=== PATIENT | female | born 1970 ===

== ENCOUNTER → 2022-08-18 08:26 | Outpatient (BNVA) | payer OTHER, SELFPAY | PROVIDERS: PCP Family Medicine; Visit Provider Physician Assistant Surgical | DX: Z13.89 Encounter for screening for other disorder (principal) ==

== ENCOUNTER → 2022-09-02 13:44 | Outpatient (BNVA) | payer OTHER, SELFPAY | PROVIDERS: PCP Family Medicine; Visit Provider Physician Assistant Surgical | DX: Z13.89 Encounter for screening for other disorder (principal) ==

== ENCOUNTER 2022-11-14 14:16 | Outpatient (AMB) | payer OTHER, SELFPAY ==
--- NOTE | 2022-11-14 14:18 | MHC.OFFVISWM ---
Intake VS Expanded 11/14/22 14:19 Height 5 ft 4 in Weight 277 lb BMI 47.5 BP 138/63 Blood Pressure Location Rt brachial Blood Pressure Position Sitting Pulse 84 Pulse Source Pulse Oximeter Temp 97.5 F Temperature Source Temporal Artery Scan Pulse Oximetry 95 Oxygen Delivery Method Room Air Body Fat 134.4 Body Fat Percentage 48.6 Free Fat Mass 142.4 Muscle Mass 135.2 Visceral Mass 17.0 Water Mass 101.6 BMR 2,031 Intake Visit Reasons: MWL follow up Allergies warfarin Allergy (Mild, Verified 11/14/22 14:20) Hives HPI HPI Comments History of Present Illness Details 52 yo female returns for f/u for MWL program Missed appt with RD 11/03/22 Initial weight 09/02/22 was 291.2 pounds, has not communicated weekly Weight today 277 pounds with a BMI of 47.5 Weight loss 14.2 pounds, 4.8 % TBWL She feels as though she is needing less Meloxicam for back pain. She feels as though things are going well. Less SOB and increased ability to go up/down stairs. She is averaging 5 days per week that she is able to follow the plans exactly. Not doing the bar and sometimes not doing mid morning shake due to work. Not counting forks. Not doing last shake at night. Meal plan: 3 Pure Protein shakes ([employer], [employer], [facility]) First shake (1 scoop in 8 oz low fat unsweetened almond milk) at 6am-8am Second shake (1/2 scoop in 8 oz unsweetened almond milk) at 10am-12pm 1 protein bar ([employer] Perfect bars at [employer], [facility], or [employer]) at 2pm-4pm. Dinner at 6pm (10 forks of protein and 10 forks of salad/vegetables). Another shake with 1/2 scoop in 8 oz unsweetened almond milk at 7pm-9pm. Drinking 96 oz water Exercise plan: walking at work, not tracking calories, no other exercises. PFSH Surgical History History of surgery of uterus Hx of appendectomy Hx of cholecystectomy Hx of colonoscopy Hx of endoscopy Hx of tonsillectomy Hx of tubal ligation Family History Mother Diabetes Hypertension High cholesterol Arthritis Father Arthritis Sister No problems noted. Sister No problems noted. Brother Diabetes Hypertension Sister No problems noted. Sister Arthritis Diabetes Hypertension Sister Hypertension Diabetes Thyroid disease Son Vasculitis Daughter No problems noted. Social History Alcohol intake: current Alcohol intake frequency: holidays/special occasions only Patient Tobacco Use Status: Never used Tobacco Physical Exam Const General: healthy appearing and no acute distress Resp Effort & Inspection: normal respiratory effort Auscultation: clear to auscultation bilaterally Cardio Rate: regular rate Rhythm: regular rhythm GI Auscultation: normal bowel sounds Extrem General: Yes normal to inspection Assessment & Plan Assessment & Plan (1) Morbid obesity: Code(s): E66.01 - Morbid (severe) obesity due to excess calories Plan: Encouraged to follow plan and to communicate if she is having any problems. Has not text since first appt Change meal plan to shake, bar (alternates given) or yogurt w berries, meal and another shake. 1 scoop pure protein per shake Encouraged to measure food Encouraged to start exercising despite active at work. Reminded of goals of exercise RTC 1 month Coding Level of Care Code Est Pt Level 3 (95470) Diagnoses Morbid obesity E66.01
[2022-11-14 14:19] VITALS: BP 138/63; PULSE 84; TEMP 36.4; O2SAT 95; BMI 47.5
== END 2022-11-14 14:43 | disposition home or self-care (01) ==
PROVIDERS: PCP Family Medicine; Visit Provider Physician Assistant Surgical
DX: E66.01 Morbid (severe) obesity due to excess calories (principal); Z68.42 Body mass index [BMI] 45.0-49.9, adult
CPT/HCPCS: 99213

== ENCOUNTER → 2022-11-14 14:16 | Outpatient (BNVA) | payer OTHER, SELFPAY | PROVIDERS: PCP Family Medicine; Visit Provider Physician Assistant Surgical ==

== ENCOUNTER 2025-03-20 09:38 | Outpatient (AMB) | payer OTHER, SELFPAY ==
[2025-03-20 09:44] VITALS: BMI 54.1
--- NOTE | 2025-03-20 09:44 | A.PHYSOV_ITS ---
Vital Signs 03/20/25 09:44 Height 5 ft 4 in Weight 315 lb BMI 54.1 Intake Visit Reasons: NPV SELF REF-BACK + HIP PAIN Intake Note: Patient is a 55 year old female in the office today as a new patient for low back and hip pain Allergies warfarin Allergy (Mild, Verified 03/20/25 09:46) Hives HPI Comments Details: History of Present Illness The patient is a 55-year-old female presenting with chronic low back pain radiating to the right hip. The pain has been persistent for several years without any specific inciting injury. She has previously received various injections and nerve ablation, which provided minimal relief, particularly on the left side. The pain is exacerbated by standing and walking, and she experiences significant discomfort upon rising from a seated position. Activities such as grocery shopping require her to use an electric cart or lean on a shopping cart for support. The patient has a history of fibromyalgia, for which she is currently taking pregabalin 200 mg three times daily, which has been effective in managing her nerve pain. She also has diabetes mellitus and arthritis, which are part of her medical history. She received care from [facility] and received multiple injections none of them was significantly helpful. She had radiofrequency neurotomy I believe for her lumbar facet joints, unfortunately procedure provided no benefit for pain on her right side, but did help with the pain on the left side. She ambulates with a single-point cane. She is not currently working. She denies any change in bowel bladder habits. She denies any fever or chills. Other than injections for management of extensive physical therapy. She should not be taking anti-inflammatory medications basis secondary diabetes. I reviewed her primary care notes, diagnostic imaging and records from physicians. Pain Description - Onset: Pain has been present for several years. - Quality: Described as radiating from the lower back to the right hip. - Location: Primarily in the lower back and right hip. - Exacerbating factors: Standing, walking, and rising from a seated position. - Relieving factors: Use of electric carts during shopping. - Interference: Pain interferes with daily activities such as grocery shopping and requires support for walking. Results - Imaging: Right hip x-rays were normal (June 12, 2023). - Imaging: Thoracic spine MRI showed mild degenerative changes (June 09, 2023). - Imaging: Lumbosacral spine MRI showed shallow disc protrusion at L5-S1 with contact to bilateral S1 nerve roots without displacement, and disc bulge at L4- L5 causing mild spinal canal narrowing (June 22, 2022). [facility] Surgical History Hx of tonsillectomy Hx of colonoscopy Hx of endoscopy Hx of cholecystectomy History of surgery of uterus Hx of appendectomy Hx of tubal ligation Family History Mother Diabetes Hypertension High cholesterol Arthritis Father Arthritis Sister No problems noted. Sister No problems noted. Brother Diabetes Hypertension Sister No problems noted. Sister Arthritis Diabetes Hypertension Sister Hypertension Diabetes Thyroid disease Son Vasculitis Daughter No problems noted. Social History Alcohol intake: current Alcohol intake frequency: holidays/special occasions only Patient Tobacco Use Status: Never used Tobacco Review of Systems Narrative Review of Systems - Musculoskeletal: Reports chronic low back pain radiating to the right hip. - Neurological: Denies any new neurological deficits. Physical Exam Exam Exam: Physical Exam - Musculoskeletal: Pain elicited in the back and hip upon palpation. Pain with internal rotation of the right hip. Severe tenderness with palpation over right SI sulcus. Positive right SI provocative maneuvers. Gait was antalgic on the right side. Neurological examination of lower extremities was nonfocal. Lumbar extension and side bending was restricted. Dural tension signs were negative. Patient is morbidly obese. Heel walk and toe walk were not tested. Vital Signs: BMI result Body Mass Index 54.1 Assessment & Plan Assessment & Plan (1) Morbid obesity: Code(s): E66.01 - Morbid (severe) obesity due to excess calories Category: Medical (2) Fibromyalgia: Code(s): M79.7 - Fibromyalgia Category: Medical (3) Hip pain, chronic: Code(s): M25.559 - Pain in unspecified hip; G89.29 - Other chronic pain Category: Medical Qualifiers: Laterality: right Qualified Code(s): M25.551 - Pain in right hip; G89.29 - Other chronic pain (4) Sacroiliac inflammation: Code(s): M46.1 - Sacroiliitis, not elsewhere classified Category: Medical (5) Sacroiliac dysfunction: Code(s): M53.3 - Sacrococcygeal disorders, not elsewhere classified Category: Medical Plan Pain Management - Affect: Pain impacts daily activities and requires adaptation such as using electric carts for shopping. - Analgesia: Currently taking pregabalin 200 mg three times daily, which helps manage fibromyalgia-related nerve pain. - Adverse Effects: No adverse effects from pregabalin reported. - Activities of Daily Living: Pain limits ability to stand and walk for extended periods. - Aberrant Drug Related Behaviors: No aberrant behaviors reported. Plan Patient was informed and verbally consented to the use of an ambient scribe for clinic note documentation during this visit. 1. Low Back Pain An MRI of the right hip is planned to further evaluate the pain source, with a referral to a specialist for advanced procedures if necessary. A follow-up is scheduled in one month to discuss the MRI findings and adjust the treatment plan. 2. Fibromyalgia The patient continues on pregabalin 200 mg three times daily, which effectively manages her fibromyalgia symptoms. 3. Diabetes Mellitus Diabetes management remains unchanged, with the patient advised to maintain her current regimen. 4. Arthritis Turmeric supplementation is recommended for arthritis inflammation, with a dosage of two capsules twice daily. Discussion Notes I discussed with the patient the plan to obtain an MRI of the right hip to better understand the source of her pain, as previous x-rays were normal. We also talked about the possibility of referring her to a specialist in [place] for advanced pain management procedures if the MRI does not provide sufficient information. I explained the potential benefits of these procedures, including a lateral stimulator, which could offer long-term pain relief. We agreed on a follow-up appointment in one month to review the MRI results and discuss further management options. Additionally, I recommended turmeric supplements for arthritis-related inflammation, considering her diabetes, and provided instructions on the dosage. Patient Instructions - Schedule and complete an MRI of the right hip as soon as possible. - Follow up in one month to discuss MRI results and adjust treatment plan. - Consider turmeric supplements for arthritis, taking two capsules twice daily. - Continue current diabetes management plan. Orders: Orders MR hip RT wo con Today G89.29 - Other chronic pain, M25.551 - Pain in right hip Coding Level of Care Code New Pt Level 4 (45000) Complex EM visit Add On G2211 Diagnoses Morbid obesity E66.01 Fibromyalgia M79.7 Chronic pain of right hip M25.551; G89.29 Laterality: right Sacroiliac inflammation M46.1 Sacroiliac dysfunction M53.3
--- OUTSIDE RECORDS SUMMARY | 2025-03-20 11:11 | XMS_ITS | Clinical Summary ---
Author Organization Formerly [facility] Address [address] [place] [id number] Phone Care Team Providers Care Supervisor [employer] Name Role Phone MarlinTejselvin Trammell DO Primary Care Provider Allergies Active Allergy Reactions Criticality Noted Date Comments Warfarin Hives 01/25/2023 Medications DULoxetine (CYMBALTA) 30 MG capsule Take 60 mg by mouth daily. 01/23/2023 Active gabapentin (NEURONTIN) 300 MG capsule Take 300 mg by mouth 2 (two) times a day. 01/10/2023 Active ferrous sulfate (IRON ORAL) Take 45 mg by mouth daily. Active ascorbic acid (VITAMIN C ORAL) Take by mouth. Active acetaminophen (TYLENOL) 650 MG CR tablet Take 2 tablets by mouth every 8 (eight) hours as needed. Active amitriptyline (ELAVIL) 25 MG tabletIndicatio ns:Fibromyalgia Take 1 tablet (25 mg total) by mouth nightly at bedtime. 30 tablet 02/21/2023 Active diclofenac sodium (VOLTAREN) 50 MG EC tabletIndicatio ns:Chronic bilateral low back pain without sciatica Take 1 tablet (50 mg total) by mouth 2 (two) times a day with meals. 60 tablet 02/21/2023 Active Active Problems Problem Noted Date Diagnosed Date Generalized pain 02/21/2023 Assessment & Plan (02/21/2023 10:06 AM EDT): Clinical picture c/w fibromyalgia as above; baseline PTH with routine labs today Elevated sed rate 02/21/2023 Overview (02/21/2023): 36 (08/2022), no baseline Assessment & Plan (02/21/2023 10:06 AM EDT): Repeat for trend today Chronic bilateral low back pain without sciatica 02/21/2023 Overview (02/21/2023): Following with PVSS, LESI not effective and radiofrequency ablation reportedly planned Assessment & Plan (02/21/2023 10:10 AM EDT): Trial diclofenac to replace meloxicam given lack of efficacy. D/w patient that if gabapentin has not been effective (dose limited by daytime grogginess), she should discuss taper with rx'ing MD, javon if she ultimately has significant improvement from the radiofrequency ablation. Fibromyalgia 02/21/2023 Assessment & Plan (02/21/2023 10:11 AM EDT): Agree with fibromyalgia dx given diffuse chronic pain and hyperalgesia of multiple joints on exam today. Written information fibromyalgia provided for patient review and three pillars of fibromyalgia mgmt discussed briefly. Trial add amitriptyline 25 mg nightly for sleep; can be increased to 50 mg nightly if 25 mg dose is inadequate. Defer to PCP re: continued encouragement of establishing low-impact aerobic exercise routine, ideally water-based, and referral to counselor for focus on chronic pain mgmt. Could additionally trial pregabalin to replace current gabapentin; deferred to PCP given clinical course / response to ongoing tx of LBP. There is no current indication for ongoing rheum-specific w/u or mgmt in absence of underlying or co-morbid inflammatory arthritis. DDx includes small fiber neuropathy, though clinically less likely; she may ultimately benefit from referral to [facility] or other major medical center to definitively rule this out. Social History Tobacco Use Types Packs/Day Years Used Date Smoking Tobacco: Former Cigarettes Q uit: 1996 Smokeless Tobacco: Never Alcohol Use Standard Drinks/Week Comments Not Currently 0 (1 standard drink = 0.6 oz pur e alcohol) rarely Education Answer Date Recorded Are you interested in more education? Not on shira e 10/12/2022 Are you concerned about learning? Not on file 10/12/2022 No 10/12/2022 No 10/12/2022 Digital Access Answer Date Recorded No 10/12/2022 No 10/12/2022 Reliable internet access at home? Not on file 10/12/2022 Device with a working camera? Not on file Comments Unknown Sex and Gender Information Value Date Recorded Sex Assigned at Not on file Legal Sex Female 7:42 PM EST Gender Identity Not on file Sexual Orientation Not on file Last Filed Vital Signs Vital Sign Reading Time Taken Comments Blood Pressure 136/78 02/21/2023 8:58 AM EDT Pulse 98 02/21/2023 8:58 AM EDT Temperature - - Respiratory Rate 16 02/21/2023 8:58 AM EDT Oxygen Saturation 96% 02/21/2023 8:5 8 AM EDT Inhaled Oxygen Concentration - - Weight 130.4 kg (287 lb 6.4 oz) 02/21/2023 8:58 AM EDT with shoes Height 162.6 cm (5' 4 ) 02/21/2023 8:58 AM EDT patient reported Body Mass Index 49.33 02/21/2023 8:58 AM EDT Plan of Treatment Health Maintenance Due Date Last Done Comments Adult Td,Tdap Booster 1972 LIPID PANEL 1972 DEPRESSION SCREENING 1984 SMOKING Hx and SMOKELESS TOB ACCO SCREENING 01/06/1985 HEPATITIS C SCREENING 01/06/1990 HIV ONE-TIME SCREENING (18-6 5 YEARS) 01/06/1990 PAP SMEAR 01/06/1993 SCREENING FOR DIABETES 01/06/2007 MAMMOGRAM 2012 COLOGUARD 01/06/2017 COLONOSCOPY 01/06/2017 COLORECTAL CANCER SCREENING 01/06/2017 FIT TEST 01/06/2017 FOBT 01/06/2017 SIGMOIDOSCOPY 01/06/2017 VIRTUAL COLONOSCOPY 01/06/2017 PNEUMOCOCCAL VACCINES (50+ y ears) (1 of 1 - PCV) 01/06/2022 RSV VACCINE (1 - Risk 50-74 years 1-dose series) 01/06/2022 ZOSTER VACCINES (1 of 2) 01/06/2022 INFLUENZA VACCINE (#1) 2024 02/09/2023 COVID-19 VACCINE (2024-2 6 season) 2025 HEPATITIS A VACCINES Aged Out No long er eligible based on patient's age to complete this topic HIB VACCINES Aged Out No longer eligi ble based on patient's age to complete this topic IPV VACCINES Aged Out No longer eligi ble based on patient's age to complete this topic MENINGOCOCCAL VACCINES (ACWY) Aged Out No longer eligible based on patient's age to complete this topic MENINGOCOCCAL VACCINES (B) Aged Out N o longer eligible based on patient's age to complete this topic Medical Devices Not on file Insurance S S S S S [facility] PPO [employer] Care Teams Supervisor [employer] Relationship Specialty Start Date End Date Stefan Isaac DO [address] [place] [address] PCP - General 11/05/13 Additional Source Comments The information contained in this document represents components of the legal health record. It is not the complete legal health record.[facility]
--- OUTSIDE RECORDS SUMMARY | 2025-03-20 11:11 | XMS_ITS | Clinical Summary ---
Author Organization [facility] Address [address] [place] [address] Phone Care Team Providers Care Hand Spray Operator Name Role Phone Stefan Isaac Primary Care Provider Allergies Active Allergy Reactions Criticality Noted Date Comments Warfarin 11/26/2020 Other Reaction(s): Hives/Urticaria Medications acetaminophen (TYLENOL 8 HOUR ORAL) Take 1,300 mg by mouth daily. Active ferrous sulfate 142 mg ER tablet Active metFORMIN XR (GLUCOPHAGE-XR) 500 mg 24 hr tablet Take 1 tablet (500 mg total) by mouth 1 (one) time each day. 5 Active Gabby 0.35 mg tablet Take 1 tablet (0.35 mg total) by mouth 1 (one) time each day. 5 Active pregabalin (LYRICA) 150 mg capsule Take 1 capsule (150 mg total) by mouth 2 (two) times a day. Active cetirizine (ZyrTEC) 10 mg tablet Take 1 tablet (10 mg total) by mouth 1 (one) time each day. 5 Active Vitamin 27 mg iron- 0.8 mg per tablet Take 1 tablet by mouth 1 (one) time each day. 5 Active Ventolin HFA 90 mcg/actuation inhaler Inhale 2 puffs by mouth every 4 (four) hours if needed for wheezing or shortness of breath. 5 Active fluticasone propionate (FLONASE) 50 mcg/actuation nasal spray Administer 1 spray into each nostril 1 (one) time each day. Active Active Problems Problem Noted Date Diagnosed Date Anemia 11/27/2024 Carpal tunnel syndrome 11/27/2024 Impingement syndrome of shoulder region 11/28/19 25 Iron deficiency anemia 11/27/2024 Neuropathy of leg 11/27/2024 Pain in the muscles 11/27/2024 Peripheral edema 11/27/2024 Pneumonia 11/27/2024 Prolonged QT interval 11/27/2024 Rotator cuff tear arthropathy of left shoulder 0 11/27/2024 Severe obesity (CMS/HCC V24, CMS/HCC V28) 2024 Tendonitis of upper biceps tendon of right shoul cristy 11/27/2024 Type 2 diabetes mellitus (CMS/HCC V24, CMS/HCC V 28) 11/27/2024 Urinary problem 11/27/2024 Back pain of lumbar region with sciatica 025 Fibromyalgia 02/21/2023 Elevated sed rate 02/21/2023 Overview (11/27/2024): 36 (08/2022), no baseline Generalized pain 02/21/2023 Tubular adenoma of colon 02/23/2021 Congenital cystic disease of liver 12/29/2020 Perineurial cyst 12/29/2020 Sleep apnea 12/29/2020 Chronic abdominal pain 08/28/2015 Abnormal weight loss 05/30/2014 Overview (11/27/2024): Abnormal Weight Loss Diagnosis unknown 05/30/2014 Overview (11/27/2024): Text: Nausea Chronic Right upper quadrant pain 05/30/2014 Overview (11/27/2024): Abdominal Pain In The Right Upper Belly (RUQ) Encounters Date Type Department Care Team Description 12/25/2024 Telephone Gastroenterology - [facility] [address] [place] [address] Evelyn Mcdermott NP from Last 3 Months Immunizations Immunization Administration Dates Next Due Influenza trivalent, with preservative (Fluzone; Afluria) 6mo and older 02/12/2024,02/08/2023,02/22/2021,2019,02/14/2017 Zoster recombinant (Shingrix ) 19yo and older 02/29/2024 Surgical History Surgery Date Site/Laterality Comments APPENDECTOMY PROCEDURE: HISTORICAL APPENDECTOMY KNEE SURGERY 05/08/2023 - 05/07/2024 Left CHOLECYSTECTOMY 05/08/2013 - 05/07/2014 POLYPECTOMY Uterine polypectomy x2 TUBAL LIGATION 05/08/1998 - 05/07/1999 COLONOSCOPY August 2024 Medical History Medical History Date Comments Congenital cystic disease of liver 12/29/2020 DX:Congenital cystic disease of liver History of deep vein thrombo sis (DVT) of lower extremity 12/29/2020 DX:History of deep vein thro mbosis (DVT) of lower extremity Perineurial cyst 12/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 DX:Perineurial cyst Sleep apnea 12/29/2020 DX:Sleep apnea Anemia Carpal tunnel syndrome Fibromyalgia Pneumonia Diabetes mellitus (CMS/HCC V 24, CMS/HCC V28) Tendonitis Arthritis Family History Medical History Relation Name Comments Colon polyps Brother Francis Miller Diabetes Brother Francis Miller Colon polyps Daughter Tammy Santos Diabetes Father's Brother 1 Ross Miller Hypertension Father's Brother 1 Ross Miller Diabetes Father's Brother 2 Merritt Miller Heart attack Father's Brother 2 Merritt Miller Hypertension Father's Brother 2 Merritt Miller Diabetes Father's Brother 3 Gumemzindo Miller Colon polyps Mother Shavon Mak Lazaro Diabetes Mother Shavon Mak Lazaro Hypertension Mother Shavon Mak Lazaro Irritable bowel syndrome Mother Shavon Mak Lazaro Deep vein thrombosis Mother's Brother Jose Mak Stomach cancer Mother's Brother Jose Mak Colon polyps Mother's Sister 1 Gladyz Mak Diabetes Mother's Sister 1 Gladyz Mak Hypertension Mother's Sister 1 Gladyz Mak Diabetes Mother's Sister 2 Katerina Mak Hypertension Mother's Sister 2 Katerina Mak Diabetes Mother's Sister 3 Kavitha Mak Lazaro Hypertension Mother's Sister 3 Kavitha Mak Lazaro Stroke Mother's Sister 3 Kavitha Mak Lazaro Cystic fibrosis Mother's Sister 4 Domitila Mak Liver disease Mother's Sister 4 Domitila Mak Liver cancer Mother's Sister 5 Isela Mak Liver disease Mother's Sister 5 Isela Mak Heart attack Paternal Grandfather Rossabi Bergergos Diabetes Paternal Grandmother Deana Rutledge Hypertension Paternal Grandmother Deana Rutledge Diabetes Sister 1 Dina Miller Colon polyps Sister 2 Irene Miller I Diabetes Sister 2 Irene Miller I Hypertension Sister 2 Irene Miller I Liver disease Sister 2 Irene Miller I Relation Name Status Comments Brother Francis Stevensmez Daughter Leischeryl Santos Father's Brother 1 Ross Miller Father's Brother 2 Merritt Miller Father's Brother 3 Gumemzindo Miller Maternal Grandfather COLON C A Mother Shavon Mak Lazaro Mother's Brother Jose Mak Mother's Sister 1 Gladywang Mak Mother's Sister 2 Katerina Mak Mother's Sister 3 Kavitha Mak Lazaro Mother's Sister 4 Domitila Mak Mother's Sister 5 Isela Mak Paternal Grandfather Rossabi Miller New Paternal Grandmother Deana Rutledge Sister 1 Dina Miller Sister 2 Irene Stevensmez I Social History Tobacco Use Types Packs/Day Years Used Date Smoking Tobacco: Former Cigarettes 3 25.3 0 01/06/1990 - 05/08/2015 Smokeless Tobacco: Never Alcohol Use Standard Drinks/Week Comments Not Currently 0 (1 standard drink = 0.6 oz pur e alcohol) social Interpersonal Safety Answer Date Record ed Physical Abuse Unrecognized value 08/19/2024 Verbal Abuse Unrecognized value 08/19/2024 Comments No Sex and Gender Information Value Date Recorded Sex Assigned at Female 07/29/2024 10:23 AM EDT Legal Sex Female 6:13 PM EST Gender Identity Female 07/29/2024 10:23 AM EDT Sexual Orientation Straight 07/29/2024 10 :23 AM EDT Obstetrics History Last Filed Vital Signs Vital Sign Reading Time Taken Comments Blood Pressure 132/76 11/28/2024 9:05 AM EDT Pulse 89 11/28/2024 9:05 AM EDT Temperature 36.6 C (97.8 F) 08/19/2024 8:25 AM EDT Respiratory Rate 14 08/19/2024 9:18 AM EDT Oxygen Saturation 97% 11/28/2024 9:05 AM EDT Inhaled Oxygen Concentration - - Weight 142 kg (313 lb 6.4 oz) 11/28/2024 9:05 AM EDT Height 162.6 cm (5' 4 ) 11/28/2024 9:05 AM EDT Body Mass Index 53.79 11/28/2024 9:05 AM EDT Plan of Treatment Health Maintenance Due Date Last Done Comments Breast Cancer Screening 1970 Diabetes: Annual GFR (Glomerular Filtration Rate) 1970 Diabetes: Annual Foot Exam 01/06/1982 Diabetes: Annual Retina Eye Exam 01/06/1982 DTaP,Tdap,and Td Vaccines (1 - Tdap) 01/06/1991 Hepatitis B Vaccines (1 of 3 - 19+ 3-dose series) 01/06/1991 Pneumococcal Vaccine: 50+ Years (1 of 2 - PCV) 01/06/1991 Cervical Cancer Screening: Pap Smear 01/06/1993 RSV Immunization Adult Patients (1 - Risk 50-74 years 1-dose series) 01/06/2022 Cholesterol Screening (Lipid Panel) 04/16/2022 HIV Screening 04/16/2022 Hepatitis C Screening 04/16/2022 Lung Cancer Screening (Low Dose CT) 04/16/2022 Social Influencers of Health Screening 04/16/2022 Depression Screening 05/08/2024 Diabetes: Annual Urine Albumin-Creatinine Ratio (uACR) 06/27/2024 Diabetes: Blood Sugar Control Test (HGBA1C) 06/27/2024 COVID-19 Vaccine ( season) 2025 02/12/2024, 02/08/2023, 03/04/2021, Additional history exists Colorectal Cancer Screening: Colonoscopy 08/19/2029 08/19/2024, 02/12/2021, 02/12/2021 Zoster Vaccines Completed 08/01/2024, 02/29/2024 Influenza Vaccine Completed 02/21/2025, , 02/08/2023, Additional history exists HIB Vaccines Aged Out No longer eligi ble based on patient's age to complete this topic HPV Vaccines Aged Out No longer eligi ble based on patient's age to complete this topic Hepatitis A Vaccines Aged Out No long er eligible based on patient's age to complete this topic IPV Vaccines Aged Out No longer eligi ble based on patient's age to complete this topic MMR Vaccines Aged Out No longer eligi ble based on patient's age to complete this topic Meningococcal ACWY Vaccine Aged Out N o longer eligible based on patient's age to complete this topic Meningococcal B Vaccine Aged Out No l onger eligible based on patient's age to complete this topic RSV Immunization Patients Under 20 months Aged Out No longer eligible based on patient's age to complete this topic Varicella Vaccines Aged Out No longer eligible based on patient's age to complete this topic Procedures Procedure Name Priority Date/Time Associated Diagnosis Comments COLONOSCOPY Routine 08/19/2024 8:57 AM EDT Chronic iron deficiency anemia from Last 3 Months or Most Recently Relevant to Health Maintenance Results * COLONOSCOPY Anesthesia - MAC; [facility] ENDOSCOPY (08/19/2024 8:57 AM EDT) Anatomical Region Laterality Modality Endoscopy 08/19/2024 7:36 AM EDT Impressions 08/19/2024 8:57 AM EDT - Hemorrhoids found on perianal exam. - One 6 mm polyp in the ascending colon, removed with a cold snare. Resected and retrieved. - Congested mucosa in the rectum. Biopsied. - The examination was otherwise normal on direct and retroflexion views. Recommendation: - - Discharge patient to home. - High fiber diet. - Continue present medications. - Await pathology results. - Repeat colonoscopy for surveillance based on pathology results. - Rectal congestion likely due to mild prolapse. Bx obtained. Narrative 08/19/2024 8:57 AM EDT [facility] GI Patient Name: Radha Miller Procedure Date: 08/19/2024 7:36 AM Date of : 1970 Age: 54 Gender: Female Note Status: Finalized Attending MD: Dominic Funk DO, [id number] Procedure Date No Time: 08/19/2024 Procedure: Colonoscopy Indications: Iron deficiency anemia Providers: Dominic Funk DO Referring MD: Stefan Isaac MD Medicines: Monitored Anesthesia Care Complications: No immediate complications. Estimated blood loss: None. Estimated Blood Loss: Estimated blood loss was minimal. Procedure: Pre-Anesthesia Assessment: - - Prior to the procedure, a History and Physical was performed, and patient medications and allergies were reviewed. The patient is competent. The risks and benefits of the procedure and the sedation options and risks were discussed with the patient. All questions were answered and informed consent was obtained. Patient identification and proposed procedure were verified by the physician, the nurse, the anesthesiologist, the women's apparel salesperson and the business office technician in the pre-procedure area in the endoscopy suite. Mental Status Examination: alert and oriented. Airway Examination: normal oropharyngeal airway and neck mobility. Respiratory Examination: clear to auscultation. CV Examination: normal. Prophylactic Antibiotics: The patient does not require prophylactic antibiotics. Prior Anticoagulants: The patient has taken no anticoagulant or antiplatelet agents. ASA Grade Assessment: II - A patient with severe systemic disease. After reviewing the risks and benefits, the patient was deemed in satisfactory condition to undergo the procedure. The anesthesia plan was to use monitored anesthesia care (MAC). Immediately prior to administration of medications, the patient was re-assessed for adequacy to receive sedatives. The heart rate, respiratory rate, oxygen saturations, blood pressure, adequacy of pulmonary ventilation, and response to care were monitored throughout the procedure. The physical status of the patient was re-assessed after the procedure. After I obtained informed consent, the scope was passed under direct vision. Throughout the procedure, the patient's blood pressure, pulse, and oxygen saturations were monitored continuously. The Colonoscope was introduced through the anus and advanced to the cecum, identified by appendiceal orifice and ileocecal valve. The colonoscopy was performed without difficulty. The patient tolerated the procedure well. The quality of the bowel preparation was good. Findings: Hemorrhoids were found on perianal exam. A 6 mm polyp was found in the ascending colon. The polyp was sessile. The polyp was removed with a cold snare. Resection and retrieval were complete. Verification of patient identification for the specimen was done. Estimated blood loss was minimal. An area of mildly congested mucosa was found in the rectum. This was biopsied with a cold forceps for histology. Verification of patient identification for the specimen was done. Estimated blood loss was minimal. The exam was otherwise without abnormality on direct and retroflexion views. Procedure Code(s): --- Professional --- 70596, Colonoscopy, flexible; with removal of tumor(s), polyp(s), or other lesion(s) by snare technique 62355, 59, Colonoscopy, flexible; with biopsy, single or multiple Diagnosis Code(s): --- Professional --- K64.9, Unspecified hemorrhoids D12.2, Benign neoplasm of ascending colon K62.89, Other specified diseases of anus and rectum D50.9, Iron deficiency anemia, unspecified CPT copyright 2020 [employer]. All rights reserved. The codes documented in this report are preliminary and upon certified medical records coder review may be revised to meet current compliance requirements. DOMINIC Funk DO 08/19/2024 8:57:40 AM This report has been signed electronically.Dominic Funk DO Number of Addenda: 0 Note Initiated On: 08/19/2024 7:36 AM Scope Withdrawal Time: 0 hours 6 minutes 54 seconds Scope In: 8:45:39 AM Scope Out: 8:54:46 AM Endoscopy Department at [facility] - [address] [place] [id number] Procedure Note Dominic Funk DO - 08/19/2024 [facility] GI Patient Name: Radha Miller Procedure Date: 08/19/2024 7:36 AM Date of : 1970 Age: 54 Gender: Female Note Status: Finalized Attending MD: Dominic Funk DO, [id number] Procedure Date No Time: 08/19/2024 Procedure: Colonoscopy Indications: Iron deficiency anemia Providers: Dominic Funk DO Referring MD: Stefan Isaac MD Medicines: Monitored Anesthesia Care Complications: No immediate complications. Estimated blood loss:None. Estimated Blood Loss: Estimated blood loss was minimal. Procedure: Pre-Anesthesia Assessment: - - Prior to the procedure, a History and Physicalwas performed, and patient medications and allergieswere reviewed. The patient is competent. The risks and benefits of the procedure and the sedation optionsand risks were discussed with the patient. Allquestions were answered and informed consent was obtained. Patient identification and proposed procedure were verified by the physician, the nurse, the anesthesiologist, the women's apparel salesperson and thetechnician in the pre-procedure area in the endoscopy suite. Mental Status Examination: alert and oriented.Airway Examination: normal oropharyngeal airway and neck mobility. Respiratory Examination: clear to auscultation. CV Examination: normal. Prophylactic Antibiotics: The patient does not requireprophylactic antibiotics. Prior Anticoagulants: The patient has taken no anticoagulant or antiplatelet agents. ASA Grade Assessment: II - A patient with severesystemic disease. After reviewing the risks and benefits,the patient was deemed in satisfactory condition to undergo the procedure. The anesthesia plan was touse monitored anesthesia care (MAC). Immediately priorto administration of medications, the patient was re-assessed for adequacy to receive sedatives. The heart rate, respiratory rate, oxygen saturations, blood pressure, adequacy of pulmonary ventilation,and response to care were monitored throughout the procedure. The physical status of the patient was re-assessed after the procedure. After I obtained informed consent, the scope was passed under direct vision. Throughout theprocedure, the patient's blood pressure, pulse, and oxygen saturations were monitored continuously. The Colonoscope was introduced through the anus and advanced to the cecum, identified by appendiceal orifice and ileocecal valve. The colonoscopy was performed without difficulty. The patient tolerated the procedure well. The quality of the bowel preparation was good. Findings: Hemorrhoids were found on perianal exam. A 6 mm polyp was found in the ascending colon. The polyp was sessile. The polyp was removed with acold snare. Resection and retrieval were complete. Verification of patient identification for the specimen was done. Estimated blood loss wasminimal. An area of mildly congested mucosa was found in the rectum. This was biopsied with a cold forceps for histology. Verification of patient identificationfor the specimen was done. Estimated blood loss was minimal. The exam was otherwise without abnormality ondirect and retroflexion views. Procedure Code(s): --- Professional --- 30091, Colonoscopy, flexible; with removal of tumor(s), polyp(s), or other lesion(s) by snare technique [id number], 59, Colonoscopy, flexible; with biopsy,single or multiple Diagnosis Code(s): --- Professional --- K64.9, Unspecified hemorrhoids D12.2, Benign neoplasm of ascending colon K62.89, Other specified diseases of anus andrectum D50.9, Iron deficiency anemia, unspecified CPT copyright 2020 [employer]. All rights reserved. The codes documented in this report are preliminary and upon certified medical records coder reviewmay be revised to meet current compliance requirements. DOMINIC Funk DO 08/19/2024 8:57:40 AM This report has been signed electronically.Dominic Funk DO Number of Addenda: 0 Note Initiated On: 08/19/2024 7:36 AM Scope Withdrawal Time: 0 hours 6 minutes 54 seconds Scope In: 8:45:39 AM Scope Out: 8:54:46 AM Endoscopy Department at [facility] - [address] [place] [id number] IMPRESSION: - Hemorrhoids found on perianal exam. - One 6 mm polyp in the ascending colon, removedwith a cold snare. Resected and retrieved. - Congested mucosa in the rectum. Biopsied. - The examination was otherwise normal on directand retroflexion views. Recommendation: - - Discharge patient to home. - High fiber diet. - Continue present medications. - Await pathology results. - Repeat colonoscopy for surveillance based on pathology results. - Rectal congestion likely due to mild prolapse. Bx obtained. Dominic Funk DO GI~PROCEDURE ORDERABLES Final Re sult from Last 3 Months or Most Recently Relevant to Health Maintenance Insurance [facility] [employer]AGE [address] [place] [address] Care Teams Hand Spray Operator Relationship Specialty Start Date End Date Stefan Isaac DO [address] [place], [place] PCP - General 11/28/19
--- OUTSIDE RECORDS SUMMARY | 2025-03-20 11:11 | XMS_ITS | Patient Health Record ---
Author Organization [facility] Address [address] [place] [address] Care Team Providers Care Supervisor Aircraft Cleaning Name Role Phone rigoberto Stefan Primary Care Provider Unavailabl e Allergies Allergen (clinical drug ingredient) Drug/Non Drug Allergy documented on EMR Reaction Allergy Type Onset Date Status warfarin Warfarin hives Drug Allergy Active Reason For Referral No Information Medications Medication SIG (Take, Route, Fr equency, Duration) Notes Start Date End Date Status Vitamin C 500 MG as directed Orally Active Medrol 4 MG 1 tablet with food o r milk Orally every 12 hrs Active Percocet 5-325 MG 1 tablet as needed O rally every 6 hrs Active Slow Fe 142 (45 Fe) MG 1 tablet Orally Once a day Active Tylenol 8 Hour 650 MG 2 tablets as neede d Orally every 8 hrs Active Plan Of Treatment Pending Test Test Name Order Date X ray : Foot, right 3v 02/02/2021 Insurance Providers Payer Name Payer Address Payer Phone Subscriber Number Group Number Insured Name Patient Relationship to Insured Coverage Start Date Coverage End Date [facility] [address] [place] [address] [phone] [id number] Sasha Miller Self - patient is the insured Medical (General) History Medical History History ICD Code Congenital Cystic Disease of Liver History of DVT of lower extremity Perineurial cyst Sleep apnea Disorder of vein Tubal Surgical History Surgery Date(Month/Year) appendectomy
== END 2025-03-20 10:15 | disposition home or self-care (01) ==
PROVIDERS: PCP Internal Medicine; Visit Provider Physical Medicine & Rehabilitation
DX: E66.01 Morbid (severe) obesity due to excess calories (principal); M79.7 Fibromyalgia; M25.551 Pain in right hip; G89.29 Other chronic pain; M46.1 Sacroiliitis, not elsewhere classified; M53.3 Sacrococcygeal disorders, not elsewhere classified
CPT/HCPCS: 99204; G2211